=== PATIENT | male | born 1950 | race Caucasian/White ===

== ENCOUNTER 2017-01-06 13:55 | Emergency (ER) | payer BC ==
--- NOTE | 2017-01-06 14:41 | UC ---
Upper Extremity HPI - HPI Summary HPI Summary: 66 YEAR OLD MALE PRESENTS WITH RIGHT SHOULDER, ELBOW AND FOREARM INJURY SECONDARY TO A FALL. - History of Current Complaint Stated Complaint: ELBOW INJURY Time Seen by Provider: 01/06/17 14:41 Hx Obtained From: Patient Onset/Duration: Sudden Onset Severity Initially: Moderate Severity Currently: Moderate Pain Scale Used: 0-10 Numeric - 5 Character: Sharp - Allergies/Home Medications Allergies/Adverse Reactions: Allergies Allergy/AdvReac Type Severity Reaction Status Date / Time No Known Allergies Allergy Verified 01/06/17 14:43 Home Medications: Home Medications Diclofenac Sodium EC TAB* [Voltaren EC TAB*] 75 mg BID 01/06/17 [History Confirmed 01/06/17] FLUoxetine CAP* [PROzac CAP*] 40 mg PO DAILY 01/06/17 [History Confirmed ] PMH/Surg Hx/FS Hx/Imm Hx Previously Healthy: Yes - Surgical History Surgical History: Yes Surgery Procedure, Year, and Place: CHOLECYSTECTOMY. R EYE SX - Social History Alcohol Use: None Substance Use Type: None Smoking Status (MU): Never Smoked Tobacco When Did the Patient Quit Smoking/Using Tobacco: 40 years ago - Immunization History Most Recent Influenza Vaccination: 2012 Review of Systems Constitutional: Negative Skin: Negative Eyes: Negative ENT: Negative Respiratory: Negative Cardiovascular: Negative Gastrointestinal: Negative Genitourinary: Negative Motor: Negative Neurovascular: Negative Musculoskeletal: Myalgia, Other: - RIGHT SHOUDLER, ELBOW AND FOREARM PAIN Neurological: Negative Psychological: Negative All Other Systems Reviewed And Are Negative: Yes Physical Exam Triage Information Reviewed: Yes Vital Signs Reviewed: Yes Eye Exam: Normal ENT Exam: Normal Dental Exam: Normal Neck exam: Normal Neck: Positive: 1 Respiratory Exam: Normal Cardiovascular Exam: Normal Abdominal Exam: Normal Musculoskeletal: Positive: Other: - RIGHT SHOULDER, ELBOW AND FOREARM PAIN Neurological Exam: Normal Psychological Exam: Normal Skin Exam: Normal Upper Extremity Course/Dx - Differential Dx/Diagnosis Provider Diagnoses: RIGHT RADIAL HEAD FRACTURE. RIGHT SHOULDER SPRAIN. RIGHT FOREARM PAIN Discharge - Discharge Plan Condition: Stable Disposition: HOME Prescriptions: Acetaminop/Codeine 30 MG TAB* [Tylenol/Codeine 30 MG TAB*] 1 tab PO Q8H PRN #9 tab MDD 3 PRN Reason: Pain Cephalexin CAP* [Keflex CAP*] 500 mg PO TID #21 cap Patient Education Materials: Elbow Fracture (ED) Forms: *Work Release Referrals: Srinivas Wilcox MD [Primary Care Provider] - Xavier Mooney MD [Medical Doctor] - Additional Instructions: patient moving to [place] so he will be seen by sos.
[2017-01-06 14:52] VITALS: BP 146/78
--- NOTE | 2017-01-06 15:38 | RAD ---
INDICATION: Right shoulder injury. TECHNIQUE: 4 views of the right shoulder were obtained. FINDINGS: The bones are in normal alignment. No fracture is seen. 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 IMPRESSION: NO EVIDENCE OF FRACTURE.
--- NOTE | 2017-01-06 15:40 | RAD ---
INDICATION: Right elbow injury. TECHNIQUE: 4 views of the right elbow were obtained. FINDINGS: There is a slightly depressed fracture of the radial head with slight separation of the fracture fragments. No additional fracture is seen. IMPRESSION: SLIGHTLY DEPRESSED INTRA-ARTICULAR FRACTURE OF THE RADIAL HEAD.
--- NOTE | 2017-01-06 15:41 | RAD ---
INDICATION: Right forearm injury. TECHNIQUE: 2 views of the right forearm were obtained. FINDINGS: There is soft tissue swelling posterior to the olecranon process of the ulna. There is a slightly depressed fracture of the radial head. No additional fractures are seen. IMPRESSION: SLIGHTLY DEPRESSED FRACTURE OF THE RADIAL HEAD, NO ADDITIONAL FRACTURE IS SEEN.
== END 2017-01-06 15:53 | disposition home or self-care (01) ==
LOC: UCCORT 13:55
DX: S52.121A Displaced fracture of head of right radius, initial encounter for closed fracture (principal); S43.401A Unspecified sprain of right shoulder joint, initial encounter; W19.XXXA Unspecified fall, initial encounter; Y93.9 Activity, unspecified; Y92.9 Unspecified place or not applicable; M79.631 Pain in right forearm; Z87.891 Personal history of nicotine dependence
CPT/HCPCS: 99213; G0463